=== PATIENT | male | born 1955 | race Caucasian/White ===

== ENCOUNTER → 2020-11-01 09:16 | Outpatient (CLI) | payer MEDICARE, MEDICAID, SELFPAY | PROVIDERS: Family Provider Family Medicine; PCP Family Medicine; Visit Provider Physician Assistant | DX: L08.9 Local infection of the skin and subcutaneous tissue, unspecified (principal) | CPT/HCPCS: 87070; 87077; 87186; 87205 ==

== ENCOUNTER 2020-12-02 04:30 | Emergency (ER) | payer MEDICARE, MEDICAID, SELFPAY ==
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
[2020-12-02 04:40] VITALS: BP 165/94; PULSE 82; RESP 12; O2SAT 99; BMI 36.1
--- NOTE | 2020-12-02 04:44 | DI.RAD.S_ITS ---
PROCEDURE: XR ABDOMEN MIN 2V INDICATIONS: severe abdominal pain TECHNIQUE: 2 views of the abdomen were acquired. COMPARISON: None. FINDINGS: Surgical changes and devices: None. Bowel: No pneumoperitoneum. Nonspecific bowel gas pattern with no evidence of bowel obstruction. Moderate fecal debris. Soft tissues: No masses; visualized solid organ contours appear normal in size. No suspicious abdominal calcifications. Bones: No suspicious bony abnormalities. IMPRESSION: Moderate fecal debris. No bowel obstruction. Dictated by: Carlitos Sutton M.D. on 12/02/2020 at 7:23 Approved by: Carlitos Sutton M.D. on 12/02/2020 at 7:25
[2020-12-02 05:11] VITALS: BP 155/91; PULSE 66; O2SAT 100
[2020-12-02 05:17] LABS: RBC Urine None Seen (0-5/HPF); WBC Urine None Seen (0-5/HPF)
[2020-12-02 05:18] LABS: Bilirubin Urine UA NEGATIVE (NEGATIVE); Color Urine UA YELLOW; Glucose Urine UA NEGATIVE (Negative); Ketones Urine UA 2+ (NEGATIVE); Leukocyte Esterase Urine UA NEGATIVE (NEGATIVE); Nitrite Urine UA NEGATIVE (Negative); Occult Blood Urine UA NEGATIVE (Negative); Protein Urine UA NEGATIVE (Negative); Specific Gravity Urine UA 1.015 (1.000-1.035); Urobilinogen Urine UA 0.2 E.U./dL (0.2)
[2020-12-02 05:19] LABS: Add Manual Diff / Slide Review NO; Basophils Absolute Auto 0 /uL (0-100); Basophils Percent Auto 0.2 % (0-2); Eosinophils Absolute Auto 100 /uL (0-450); Eosinophils Percent Auto 0.7 % (2-4); Hematocrit 37.9 % (41-53); Hemoglobin 12.4 g/dL (13.5-17.5); Lymphocytes Absolute Auto 900 /uL (1100-4500); Lymphocytes Percent Auto 7.4 % (25-40); Mean Corpuscular HGB Conc 32.8 % (30-36); Mean Corpuscular Hemoglobin 28.9 PG (26-34); Mean Corpuscular Volume 88.1 fL (80-100); Monocytes Absolute Auto 400 /uL (0-900); Monocytes Percent Auto 3.6 % (3-14); Neutrophils Absolute Auto 10100 /uL (1500-7000); Neutrophils Percent Auto 88.1 % (50-75); Platelet Count 262 X10^3/uL (150-400); Red Cell Distribution Width 13.9 % (11.6-14.8); White Blood Cell Count 11.5 X10^3/uL (4.5-11.0)
[2020-12-02] MEDS: PANTOPRAZOLE 40 MG VIAL IV (05:23)
[2020-12-02] MEDS: SODIUM CHLORIDE 0.9% 1,000 ML 1000 ML IV (05:23)
[2020-12-02] MEDS: MAG HYDROX/ALUMINUM/SIMETH SUS 20 ML, LIDOCAINE VISCOUS 2% 15 ML PO (05:24)
[2020-12-02 05:26] LABS: Creatine Kinase 199 U/L (55-170); Magnesium 1.9 mg/dL (1.6-2.3)
[2020-12-02 05:27] LABS: Appearance Urine UA Cloudy
[2020-12-02 05:30] VITALS: PULSE 72; RESP 10; O2SAT 99
[2020-12-02 05:36] LABS: Alanine Aminotransferase 27 IU/L (<50); Albumin 4.1 g/dL (3.5-5.0); Albumin Globulin Ratio 1.6 (1.0-2.8); Alkaline Phosphatase 75 U/L (38-126); Aspartate Aminotransferase 35 IU/L (17-59); BUN Creatinine Ratio 14.7 (6-22); Bilirubin Total 0.3 mg/dL (0.2-1.3); Blood Urea Nitrogen 16 mg/dL (9-20); Calcium 9.5 mg/dL (8.4-10.2); Carbon Dioxide 30 mmol/L (22-32); Chloride 102 mmol/L (98-107); Estimated Glomerular Filt Rate > 60.0 mL/min (>60); Globulin 2.6 g/dL (1.7-4.1); Glucose 116 mg/dL (80-110); HEMOLYSIS 30 (0-50); Lipase 62 U/L (23-300); Potassium 4.1 mmol/L (3.4-5.1); Sodium 139 mmol/L (137-145); Total Protein 6.7 g/dL (6.3-8.2)
[2020-12-02 05:38] LABS: Troponin I < 0.012 ng/mL (0.01-0.034)
[2020-12-02 05:41] LABS: CKMB % Relative Index 2.3 % (1.5-5.0)
--- NOTE | 2020-12-02 05:41 | DI.CT.S_ITS ---
PROCEDURE: CT ABDOMEN PELVIS W CON INDICATIONS: severe abdomen pain TECHNIQUE: After the administration of intravenous contrast, axial sections acquired from the lung bases to the pubic symphysis. Coronal and sagittal reformats were performed. For radiation dose reduction, the following was used: automated exposure control, adjustment of mA and/or kV according to patient size. COMPARISON: None. FINDINGS: Image quality: Excellent. Lung bases: Unremarkable. Heart: No significant findings. ABDOMEN: Liver: Unremarkable. Incidental hepatic cyst. Gallbladder: Likely contains stones. No gallbladder wall thickening. Biliary ducts: Unremarkable. Pancreas: Unremarkable. Spleen: Unremarkable. Adrenal Glands: Unremarkable. Kidneys and Ureters: There is a solid enhancing exophytic mass off the lower pole of the right kidney measuring approximately 3.1 x 2.9 x 4.2 cm. There is question indistinctness of the margin with the dura it is fat posteriorly which may potentially represent spread into the adjacent fat. There is no tumor thrombus present in the renal vein. The adjacent adrenal is unremarkable. The right kidney contains multiple nonobstructive calculi. Left kidney and ureter are Stomach and Bowel: Scattered diverticulosis. Stomach, small bowel loops, and colon are otherwise unremarkable. Peritoneum: No abnormal intraperitoneal fluid. No free air. Ventral Wall: No hernias. Abdominal Nodes: No retroperitoneal or mesenteric adenopathy by size criteria. Vessels: Aorta and inferior vena cava are normal in size. Incidental note made of circumaortic left renal vein. PELVIS: Pelvic Organs: Unremarkable. Bladder: Prostate enlarged. No bladder wall thickening. Pelvic Nodes: No enlarged lymph nodes. Miscellaneous: No hernias are seen. Bones: Lumbar degenerative change. IMPRESSION: 1. Renal cell carcinoma, exophytic off the lower pole of the right kidney, measuring 3.1 x 2.9 x 4.2 cm, with possible extension into the surrounding fat. 2. No evidence of metastatic disease. 3. Cholelithiasis. Comment: Final report is concordant with preliminary interpretation provided by [facility]. Dictated by: Carlitos Sutton M.D. on 12/02/2020 at 7:32 Approved by: Carlitos Sutton M.D. on 12/02/2020 at 7:39
[2020-12-02 05:52] LABS: D Dimer 279 ng/mL (<230)
[2020-12-02 06:14] VITALS: PULSE 77; O2SAT 97
[2020-12-02 06:18] LABS: Amorphous Sediment Urine 2+
[2020-12-02 06:19] LABS: Bacteria Urine None Seen; Culture Indicated Urine Cult Not Indicated
[2020-12-02 06:30] VITALS: PULSE 64; RESP 14; O2SAT 99
[2020-12-02] MEDS: ONDANSETRON 4 MG ODT PREPACK 1 BOTTLE MISC (07:43)
== END 2020-12-02 07:54 | disposition home or self-care (01) ==
PROVIDERS: Emergency Provider Emergency Medicine; Family Provider Family Medicine; PCP Family Medicine
DX: R10.84 Generalized abdominal pain (principal); R11.0 Nausea
CPT/HCPCS: 36415; 74019; 74177; 80053; 81001; 82550; 82553; 83690; 83735; 84484; 85025; 85379; 93005; 96361; 96374; 99284; 99285; C9113; Q9967

== ENCOUNTER 2023-11-21 03:35 | Emergency (ER) | payer MEDICARE, MEDICAID, SELFPAY ==
[2023-11-21] VITALS (10 sets, daily range): BP systolic 109–140; BP diastolic 67–80; PULSE 56–80; RESP 11–18; TEMP 36.4–36.5; O2SAT 94–100; BMI 28.7
--- NOTE | 2023-11-21 03:48 | EKG_ITS ---
[facility] [address] [place] [address] Test Date: 2023-11-21 Pat Name: Lele Haywood Jr Department: [facility] Room: Gender: Male Cotton Feeder: ZARA : 1955 Requested By: Order Number: [id number] Reading MD: Nir Conn Measurements Intervals [place] Rate: 71 P: 46 MI: 184 QRS: -16 QRSD: 82 T: 31 QT: 408 QTc: 443 Interpretive Statements Normal sinus rhythm Low voltage QRS Inferior infarct , age undetermined Cannot rule out Anterior infarct , age undetermined Electronically Signed On 11-23-2023 16:33:52 PDT by Nir Conn
--- NOTE | 2023-11-21 03:48 | DI.CT.S_ITS ---
PROCEDURE: CT HEAD/BRAIN WO CON INDICATIONS: johnson, lightheaded, diaphoresis TECHNIQUE: Noncontrast 4.5 mm thick angled axial sections acquired from the foramen magnum to the vertex, with coronal and sagittal reformats. For radiation dose reduction, the following was used: automated exposure control, adjustment of mA and/or kV according to patient size. COMPARISON: None. FINDINGS: Image quality: Diagnostic CSF spaces: Basal cisterns are patent. Lateral ventricles are symmetric. Volume: Vascular calcifications. Periventricular white matter disease is commonly seen with chronic microangiopathy. Volume loss is present. These findings are [id number] Brain: Probably old lacunar infarct in the right basal ganglia region. No acute hemorrhage. No gross loss of russell-white differentiation. Craniofacial structures: No significant paranasal sinus fluid. IMPRESSION: No acute intracranial abnormality. Hypoattenuation focally in the right basal ganglia appears to be an age-indeterminate, probably old lacunar infarct. If there is high concern for parenchymal pathology, consider further evaluation with MRI. Agree with prelim report. Dictated by: Riccardo Barraza M.D. on 11/21/2023 at 9:11 Approved by: Riccardo Barraza M.D. on 11/21/2023 at 9:13
--- NOTE | 2023-11-21 03:48 | DI.RAD.S_ITS ---
PROCEDURE: XR CHEST 1V INDICATIONS: lightheaded, johnson, diaphoresis TECHNIQUE: One view of the chest was acquired. COMPARISON: [facility], , CHEST 1 VIEW, 01/28/2016, 23:39. FINDINGS: Surgical changes and devices: None. Lungs and pleura: Mildly low lung volumes. No dense consolidation or pleural effusion. Mediastinum: Normal heart size Bones and chest wall: Degenerative changes IMPRESSION: Mildly low lung volumes. No acute radiographic abnormality. Agree with prelim report. Dictated by: Riccardo Barraza M.D. on 11/21/2023 at 9:05 Approved by: Riccardo Barraza M.D. on 11/21/2023 at 9:06
--- NOTE | 2023-11-21 03:50 | ED.GENADULT ---
HPI - General Adult General Chief complaint: Dizziness Stated complaint: N/Dizziness Time Seen by Provider: 11/21/23 03:47 History of Present Illness HPI narrative: 68-year-old male with history of bipolar disorder, depression, ADHD, BPH, renal cell carcinoma treated with partial nephrectomy presents with complaint of waking up feeling very lightheaded with a headache and diaphoresis. Patient states he did not have a headache last week but has 1 this evening. He describes it as mild. He states he does not normally get headaches. Denies any fevers chills cold cough or congestion, denies any vision changes. No weakness, loss of sensation, patient states he felt lightheaded like he might pass out. He states no vertigo or spinning. Patient states he was nauseated but did not vomit. Denies any chest pain or pressure, no shortness of breath. No difficulty with speech. Denies any diarrhea or constipation today. He did take stool softener in the last day because of constipation. Did have a bowel movement this evening but describes it as formed. He denies black or bloody stools. Denies any new urinary symptoms. Does take doxazosin to help with your urination but states no issues. No new swelling of extremities. EMS notes patient's glucose was 150 in the field. Patient states he is on several medications for mood disorder including aripiprazole, bupropion, dextroamphetamine. States no new medications or dosages. Did not take any extra additional medication. Has had a prior partial nephrectomy for renal cell carcinoma. Patient states allergic to penicillin. No tobacco, alcohol or recreational drugs. Patient states he feels improved since he was transported. EMS did note that he was quite diaphoretic initially at the scene. Related Data Home Medications Medication Instructions Recorded Confirmed bupropion HCl 300 mg 24 hr tablet, 300 mg PO QAM 02/14/20 07/17/22 extended release dextroamphetamine-amphetamine ER 60 mg PO DAILY 02/14/20 07/17/22 30 mg 24hr capsule,extend release (Adderall XR) Previous Rx's Medication Instructions Recorded aripiprazole 5 mg tablet (Abilify) 5 mg PO QDAY #30 tabs 05/06/18 benzonatate 100 mg capsule 100 mg PO TID PRN cough #21 caps 07/17/22 Allergies Allergy/AdvReac Type Severity Reaction Status Date / Time Penicillins [PENICILLINS] Allergy Mild RASH/FEVER Verified 07/17/22 10:36 PCN Allergy Severe RASH, Uncoded 07/17/22 10:36 SWELLING IN THROAT. Review of Systems Review of Systems ROS Unobtainable: All systems reviewed & are unremarkable except as noted in HPI and below Patient History Medical History (Updated 11/21/23 @ 06:36 by Patricia Rollins DO) Schizoaffective disorder, bipolar type Paresthesia of finger Pure hypercholesterolemia (~2016) Erectile dysfunction (~2016) Chronic fatigue (~2015) Eczema (Unknown) Sleep apnea (Unknown) Depression (~1963) Migraines (Unknown) ADHD (Unknown) Fractures (Unknown) Ankle pain (~2014) Mumps (~1959) Measles (~1959) Chickenpox (~1959) Pure hypercholesterolemia (11/12/16) Erectile dysfunction (11/12/16) Attention deficit hyperactivity disorder (ADHD) (10/11/15) Bipolar disorder Social History marital status: unmarried,single education level: other (professional degree, doctoral degree) Smoking Status: Never smoker alcohol intake: never well-balanced diet: daily or most days daily servings fruits/ve-4 caffeine: Yes (never soda pop, 2+ drinks per day of caffeinated drinks) eating out: 1-3 times/week additional social history: vision deficiences Smoking Status: Never smoker alcohol intake frequency: holidays/special occasions only Substance Use Type: does not use Exam Narrative Exam Narrative: GEN: well nourished, well appearing male, alert and oriented x 3, patient appears to be in mild distress. No diaphoresis. HEENT: Atraumatic, pupils are equal round reactive to light, photophobia, extraocular movements are intact, nares are clear, there is no conjunctival pallor. Throat is clear without any exudates, erythema, tonsillar enlargement or uvular deviation, facial droop, no meningeal signs. HEART: Regular rate and rhythm without murmur, clicks, rubs. Pulses are equal in upper and lower extremities LUNGS:Lungs clear to auscultation, no wheezes, rales, crackles, chest moves symmetrically ABD:bowel sounds normal, soft, non-tender, no guarding, rebound, rigidity, no masses noted, no hepatosplenomegaly :No CVA tenderness MSCL: Non-tender, no muscle atrophy, muscles strength 5/5 upper and lower extremities, full range of motion NEURO:CN 2-12 intact, sensation normal, finger nose finger test normal, heel king test normal, romberg normal SKIN: No rash, erythema or other skin changes. Initial Vital Signs Initial Vital Signs: Vital Signs Temperature 97.6 F 11/21/23 03:46 Pulse Rate 78 11/21/23 03:46 Respiratory Rate 17 11/21/23 03:46 Blood Pressure 140/80 11/21/23 03:46 Pulse Oximetry 100 11/21/23 03:46 Oxygen Delivery Method Room Air 11/21/23 03:46 Course Orders Ordered: Discontinued Medications Sodium Chloride (Normal Saline 0.9%) 1,000 mls @ 1,000 mls/hr IV BOLUS ONE Stop: 11/21/23 04:47 Last Infusion: 11/21/23 05:20 Dose: Infused Documented By: Admin: 11/21/23 04:05 Dose: 1,000 mls/hr Documented By: Vital Signs Vital signs: Vital Signs - 8 hr 11/21/23 03:46 11/21/23 03:46 11/21/23 04:00 Temperature 97.6 F Pulse Rate 78 78 68 Respiratory Rate 17 11 L Blood Pressure 140/80 Pulse Oximetry 100 94 99 Oxygen Delivery Method Room Air 11/21/23 04:04 11/21/23 04:04 11/21/23 04:30 Temperature Pulse Rate 69 63 Respiratory Rate 18 11 L Blood Pressure 120/72 Pulse Oximetry 99 99 Oxygen Delivery Method 11/21/23 04:30 11/21/23 05:00 11/21/23 05:00 Temperature Pulse Rate 62 Respiratory Rate 12 Blood Pressure 121/74 134/70 Pulse Oximetry 98 Oxygen Delivery Method 11/21/23 05:30 11/21/23 06:00 11/21/23 06:09 Temperature Pulse Rate 56 L 80 63 Respiratory Rate 11 L 18 18 Blood Pressure Pulse Oximetry 97 99 98 Oxygen Delivery Method 11/21/23 06:09 Temperature 97.7 F Pulse Rate Respiratory Rate Blood Pressure 118/67 Pulse Oximetry Oxygen Delivery Method Medical Decision Making Lab Data 11/21/23 03:35 11/21/23 03:35 Labs: Lab Results 11/21/23 11/21/23 11/21/23 Range/Units 03:35 04:20 06:10 WBC 5.0 (4.5-11.0) X10^3/uL RBC 4.28 L (4.5-5.9) X10^6/uL Hgb 12.4 L (13.5-17.5) g/dL Hct 37.7 L (41-53) % MCV 88.2 (80-100) fL MCH 29.0 (26-34) PG MCHC 32.9 (30-36) % RDW 14.3 (11.6-14.8) % Plt Count 204 (150-400) X10^3/uL Neut % (Auto) 66.5 (50-75) % Lymph % (Auto) 24.2 L (25-40) % [place] % (Auto) 5.9 (3-14) % Eos % (Auto) 2.9 (2-4) % Baso % (Auto) 0.5 (0-2) % Neut # (Auto) 3300 (2876-5347) /uL Lymph # (Auto) 1200 (0187-8827) /uL [place] # (Auto) 300 (0-900) /uL Eos # (Auto) 100 (0-450) /uL Baso # (Auto) 0 (0-100) /uL Sodium 136 L (137-145) mmol/L Potassium 3.7 (3.4-5.1) mmol/L Chloride 105 (98-107) mmol/L Carbon Dioxide 24 (22-32) mmol/L BUN 23 H (9-20) mg/dL Creatinine 1.63 H (0.66-1.25) mg/dL Estimated GFR 45 L (>60) mL/min BUN/Creatinine Ratio 14.1 (6-22) Glucose 131 H (80-110) mg/dL Calcium 9.1 (8.4-10.2) mg/dL Total Bilirubin 0.7 (0.2-1.3) mg/dL AST 26 (17-59) IU/L ALT 16 (<50) IU/L Alkaline Phosphatase 75 (38-126) U/L Total Creatine Kinase 156 (55-170) U/L Troponin I < 0.012 (0.01-0.034) ng/mL Total Protein 7.0 (6.3-8.2) g/dL Albumin 4.2 (3.5-5.0) g/dL Globulin 2.8 (1.7-4.1) g/dL Albumin/Globulin Ratio 1.5 (1.0-2.8) Lipase 87 (23-300) U/L Urine RBC 0-1/hpf (0-5/HPF) Urine WBC 0-1/hpf (0-5/HPF) Ur Squamous Epith Cells 0-1 /hpf (0-5/HPF) Urine Bacteria Occasional (0-1) (None) Urine Mucus 1+ H (Negative) Ur Culture Indicated? Cult not indicated Vol Urine Centrifuged 10ml (spun) Chlamy pneumoniae PCR Not detected (Not Detect) Adenovirus (PCR) Not detected (Not Detect) B.parapertussis DNA PCR Not detected (Not Detecte) Coronavirus OC43 (PCR) Not detected (Not Detect) Coronavirus HKU1 (PCR) Not detected (Not Detect) Coronavirus 229E (PCR) Not detected (Not Detect) SARS-CoV-2 (PCR) Not detected (Not Detecte) Coronavirus NL63 (PCR) Not detected (Not Detect) Human Metapneumovir PCR Not detected (Not Detect) Influenza Type A (PCR) Not detected (Not Detect) Influenza Type B (PCR) Not detected (Not Detect) M. pneumoniae (PCR) Not detected (Not Detect) Parainfluenza 1 (PCR) Not detected (Not Detect) Parainfluenza 2 (PCR) Not detected (Not Detect) Parainfluenza 3 (PCR) Not detected (Not Detect) Parainfluenza 4 (PCR) Not detected (Not Detect) RSV (PCR) Not detected (Not Detect) Entero/Rhino (PCR) Not detected (Not Detect) Point of Care Testing Glucose POC 116 Urine Dip Bedside Urine Glucose Negative Bedside Urine Bilirubin - Negative Bedside Urine Ketone ++ 40 Urine Specific [place] 1.025 Bedside Urine Occult Blood - Negative Bedside Urine pH 5.5 Bedside Urine Protein - Negative Bedside Urine Urobilinogen - Negative Bedside Urine Nitrite - Negative Bedside Urine Leukocytes - Negative Esterase Point of care testing: Point of Care Testing Glucose POC 116 Urine Dip Bedside Urine Glucose Negative Bedside Urine Bilirubin - Negative Bedside Urine Ketone ++ 40 Urine Specific [place] 1.025 Bedside Urine Occult Blood - Negative Bedside Urine pH 5.5 Bedside Urine Protein - Negative Bedside Urine Urobilinogen - Negative Bedside Urine Nitrite - Negative Bedside Urine Leukocytes - Negative Esterase ECG Data Attestation: I personally reviewed and interpreted this ECG as follows: Interpretation: Sinus rhythm rate of 71 UT 184 QRS 82 QTC 443. No acute ST elevation or depression noted. MDM Narrative Medical decision making narrative: Labs show white count of 5 hemoglobin of 12.4 consistent with priors with a past several years. Platelets are 204. Lymphocytes are low. Labs show creatinine of 1.63 up from 20 21 when he was 1.09 BUN 23 with a sodium 136 potassium 3.7 chloride of 105 and CO2 of 24. Glucose is 131 calcium 9.1 LFTs are negative troponins is less than 0.012 Respiratory panel is negative Head CT shows no acute change Chest x-ray no acute cardiopulmonary abnormality identified. Arteriosclerosis of the aorta. Spondylitic changes of thoracic spine. Urine, point of care showed ketones 1 RBC 1 white cell 1 squamous, occasional bacteria. No clear infection but was sent for culture. Patient received a L of fluids. Describes mild headache but defers anything for it. Patient states he feels chilled but otherwise improved. Patient was able to ambulate to the bathroom without any issue. Reviewed his findings from today did send his urine for culture. Does not have any other clear signs of infection, did not have any cardiac arrhythmias, labs overall reassuring, patient's exam is reassuring and patient's vitals have been appropriate. Patient feels comfortable returning but we discussed if he has much worsening symptoms he is welcome to return at any time. Discharge Plan Departure Patient Disposition: Home Clinical Impression: Lightheadedness Activity Restrictions/Additional Instructions: Follow up for recheck as needed. Exact source of your symptoms today was not found. Your urine was sent for culture but did not show clear infection today. Typically takes 48-72 hours to result but if positive you would be contacted to start antibiotics. Please return for new or worsening symptoms, worsening lightheadedness or any passing out, new chest pain or shortness of breath, rapidly worsening headaches, fevers, persistent vomiting, or other new or concerning changes. Prescriptions: No Action benzonatate 100 mg capsule 100 mg PO TID PRN (Reason: cough) Qty: 21 1RF bupropion HCl 300 mg tablet extended release 24 hr 300 mg PO QAM dextroamphetamine-amphetamine [Adderall XR] 30 mg capsule,extended release 24hr 60 mg PO DAILY aripiprazole [Abilify] 5 mg tablet 5 mg PO QDAY Qty: 30 0RF Referrals: Otto Kohler MD [Family Provider] - Stand Alone Forms: Patient Portal/API
[2023-11-21 03:57] LABS: Add Manual Diff / Slide Review NO; Basophils Absolute Auto 0 /uL (0-100); Basophils Percent Auto 0.5 % (0-2); Eosinophils Absolute Auto 100 /uL (0-450); Eosinophils Percent Auto 2.9 % (2-4); Hematocrit 37.7 % (41-53); Hemoglobin 12.4 g/dL (13.5-17.5); Lymphocytes Absolute Auto 1200 /uL (1100-4500); Lymphocytes Percent Auto 24.2 % (25-40); Mean Corpuscular HGB Conc 32.9 % (30-36); Mean Corpuscular Volume 88.2 fL (80-100); Monocytes Absolute Auto 300 /uL (0-900); Monocytes Percent Auto 5.9 % (3-14); Neutrophils Absolute Auto 3300 /uL (1500-7000); Neutrophils Percent Auto 66.5 % (50-75); Platelet Count 204 X10^3/uL (150-400); Red Blood Cell Count 4.28 X10^6/uL (4.5-5.9); Red Cell Distribution Width 14.3 % (11.6-14.8)
[2023-11-21 04:03] LABS: Alanine Aminotransferase 16 IU/L (<50); Albumin 4.2 g/dL (3.5-5.0); Albumin Globulin Ratio 1.5 (1.0-2.8); Alkaline Phosphatase 75 U/L (38-126); Aspartate Aminotransferase 26 IU/L (17-59); BUN Creatinine Ratio 14.1 (6-22); Bilirubin Total 0.7 mg/dL (0.2-1.3); Blood Urea Nitrogen 23 mg/dL (9-20); Calcium 9.1 mg/dL (8.4-10.2); Carbon Dioxide 24 mmol/L (22-32); Chloride 105 mmol/L (98-107); Creatine Kinase 156 U/L (55-170); Estimated Glomerular Filt Rate 45 mL/min (>60); Globulin 2.8 g/dL (1.7-4.1); Glucose 131 mg/dL (80-110); HEMOLYSIS 26 (0-50); Lipase 87 U/L (23-300); Potassium 3.7 mmol/L (3.4-5.1); Sodium 136 mmol/L (137-145)
[2023-11-21] MEDS: SODIUM CHLORIDE 0.9% 1,000 ML 1000 ML IV (04:05)
[2023-11-21 04:15] LABS: Troponin I < 0.012 ng/mL (0.01-0.034)
[2023-11-21 05:19] LABS: Adenovirus Not Detected (Not Detect); B. parapertussis Not Detected (Not Detecte); Bordetella pertussis Not Detected (Not Detect); Chlamydophila pneumoniae Not Detected (Not Detect); Coronavirus 229E Not Detected (Not Detect); Coronavirus HKU1 Not Detected (Not Detect); Coronavirus NL 63 Not Detected (Not Detect); Coronavirus OC43 Not Detected (Not Detect); Human Metapneumovirus Not Detected (Not Detect); Human Rhinovirus/Enterovirus Not Detected (Not Detect); Influenza A Not Detected (Not Detect); Influenza B Not Detected (Not Detect); Mycoplasma pneumoniae Not Detected (Not Detect); Parainfluenza Virus 1 Not Detected (Not Detect); Parainfluenza Virus 2 Not Detected (Not Detect); Parainfluenza Virus 3 Not Detected (Not Detect); Parainfluenza Virus 4 Not Detected (Not Detect); Respiratory Syncytial Virus Not Detected (Not Detect); SARS- CoV-2 Not Detected (Not Detecte)
[2023-11-21 06:24] LABS: Bacteria Urine Occasional (0-1); Culture Indicated Urine Cult Not Indicated; Mucus Urine 1+ (Negative); RBC Urine 0-1/HPF (0-5/HPF); Squamous Epithelial Cell Urine 0-1 /HPF (0-5/HPF); Urine Volume 10mL (spun); WBC Urine 0-1/HPF (0-5/HPF)
== END 2023-11-21 07:17 | disposition home or self-care (01) ==
PROVIDERS: Emergency Provider Emergency Medicine; Family Provider Family Medicine; PCP Family Medicine
DX: R51.9 Headache, unspecified (principal); R42 Dizziness and giddiness; R61 Generalized hyperhidrosis
CPT/HCPCS: 70450; 71045; 80053; 81003; 81015; 82550; 82962; 83690; 84484; 85025; 87086; 87633; 93005; 99283; 99284

== ENCOUNTER → 2024-05-04 07:43 | Outpatient (CLI) | payer MEDICARE, MEDICAID, SELFPAY ==
--- NOTE | 2024-05-04 07:44 | DI.US.S_ITS ---
PROCEDURE: US ABD AORTA ANEURYSM SCREEN INDICATIONS: Tobacco use TECHNIQUE: Real time scanning was performed of the aorta and iliac arteries, with image documentation. COMPARISON: CT, CHEST/ABD/PEL WITH CONTRAST, 01/28/2016, 23:39. FINDINGS: Aorta: Proximal aortic diameter measures 2.6 cm. Mid-aorta measures 1.5 cm. Distal aortic diameter is 1.8 cm. Iliac arteries: Right common iliac artery measures 1.4 cm. Left common iliac artery measures 1.2 cm. IMPRESSION: No aneurysmal dilation. Minimal ectasia of the proximal aorta. Dictated by: Tatyana Parks M.D. on 05/04/2024 at 14:01 Approved by: Tatyana Parks M.D. on 05/04/2024 at 14:02
[2024-05-04 08:56] LABS: Cholesterol 268 mg/dL (140-199); HDL Cholesterol 61 mg/dL (40-60); LDL Cholesterol Calculated 186 mg/dL (<100); Triglycerides 106 mg/dL (35-150)
== END ==
PROVIDERS: Family Provider Family Medicine; PCP Family Medicine; Referring Provider Family Medicine; Visit Provider Family Medicine
DX: E78.00 Pure hypercholesterolemia, unspecified (principal); Z72.0 Tobacco use; Z13.6 Encounter for screening for cardiovascular disorders
CPT/HCPCS: 36415; 76706; 80061

== ENCOUNTER → 2024-12-13 14:24 | Outpatient (CLI) | payer MEDICARE, MEDICAID, SELFPAY ==
[2024-12-13 15:08] LABS: Add Manual Diff / Slide Review NO; Hematocrit 39.3 % (41-53); Hemoglobin 13.0 g/dL (13.5-17.5); Lymphocytes Absolute Auto 1000 /uL (1100-4500); Mean Corpuscular HGB Conc 33.1 % (30-36); Mean Corpuscular Hemoglobin 29.2 PG (26-34); Mean Corpuscular Volume 88.1 fL (80-100); Platelet Count 220 X10^3/uL (150-400)
[2024-12-13 15:18] LABS: Hemoglobin A1C% w Est Avg Glu 5.4 % (4.0-6.0)
[2024-12-13 15:26] LABS: Alanine Aminotransferase 16 IU/L (<50); Albumin 4.3 g/dL (3.5-5.0); Albumin Globulin Ratio 1.7 (1.0-2.8); Alkaline Phosphatase 78 U/L (38-126); Blood Urea Nitrogen 22 mg/dL (9-20); Calcium 9.5 mg/dL (8.4-10.2); Carbon Dioxide 24 mmol/L (22-32); Chloride 103 mmol/L (98-107); Cholesterol 228 mg/dL (140-199); Estimated Glomerular Filt Rate > 60 mL/min (>60); Globulin 2.6 g/dL (1.7-4.1); Glucose 103 mg/dL (70-99); HDL Cholesterol 49 mg/dL (40-60); HEMOLYSIS < 15 (0-50); Potassium 4.6 mmol/L (3.4-5.1); Sodium 136 mmol/L (137-145); Total Protein 6.9 g/dL (6.3-8.2); Triglycerides 62 mg/dL (35-150)
== END ==
PROVIDERS: PCP Family Medicine; Referring Provider Family Medicine; Visit Provider Family Medicine
DX: N18.30 Chronic kidney disease, stage 3 unspecified (principal); R73.03 Prediabetes; R03.0 Elevated blood-pressure reading, without diagnosis of hypertension; E78.5 Hyperlipidemia, unspecified
CPT/HCPCS: 36415; 80053; 80061; 83036; 85025

== ENCOUNTER → 2025-02-16 16:09 | Outpatient (CLI) | payer MEDICARE, MEDICAID, SELFPAY ==
--- NOTE | 2025-02-16 16:11 | DI.MRI.S_ITS ---
PROCEDURE: MR HEAD/BRAIN WO CON INDICATIONS: Eval and treat TECHNIQUE: Non-contrast axial T1 spin echo, axial T2 fast spin echo, sagittal and axial FLAIR, coronal T2 fast spin echo, axial gradient echo, axial diffusion and ADC through the brain. COMPARISON: [facility], CT, CT HEAD/BRAIN WO CON, 11/21/2023, 5:08. FINDINGS: Image quality: Excellent. CSF spaces: Ventricles appear symmetric in size and shape. Basal cisterns are patent. No extra-axial fluid collections. Brain: No intracranial bleeds or mass effects. There is cerebral volume loss for age. There are periventricular and deep white matter chronic small vessel ischemic changes. Brainstem appears normal. Diffusion-weighted images show no acute infarct. T2 hyperintensity within the right temporal lobe possibly related to perineural cysts versus focus of prior infection/infarction. It is unchanged. Normal intravascular flow voids are present. Skull and face: Calvarial bone marrow is normal in signal. Orbits are normal. Sinuses: Sinuses and mastoids are clear. IMPRESSION: 1. No acute intracranial process. 2. [id number] atrophy and chronic microvascular ischemic changes. Dictated by: Tatyana Parks M.D. on 02/17/2025 at 11:30 Approved by: Tatyana Parks M.D. on 02/17/2025 at 11:33
== END ==
PROVIDERS: PCP Family Medicine; Referring Provider Family Medicine; Visit Provider Family Medicine
DX: R25.1 Tremor, unspecified (principal)
CPT/HCPCS: 70551

== ENCOUNTER → 2025-03-07 13:57 | Outpatient (CLI) | payer MEDICARE, MEDICAID, SELFPAY ==
[2025-03-07 14:44] LABS: Appearance Urine UA CLEAR; Bilirubin Urine UA NEGATIVE (NEGATIVE); Color Urine UA YELLOW; Glucose Urine UA NEGATIVE (Negative); Ketones Urine UA TRACE (NEGATIVE); Leukocyte Esterase Urine UA NEGATIVE (NEGATIVE); Nitrite Urine UA NEGATIVE (Negative); Occult Blood Urine UA TRACE-INTACT (Negative); Protein Urine UA NEGATIVE (Negative); Specific Gravity Urine UA 1.020 (1.000-1.035); Urobilinogen Urine UA 0.2 E.U./dL (0.2); pH Urine UA 5.5 (4.5-8.0)
[2025-03-07 14:59] LABS: Culture Indicated Urine Cult Not Indicated
[2025-03-07 15:03] LABS: Protein (Total) Urine Random 11 mg/dL (0-12); Protein Creatinine Ratio Urine 0.10 GRAM/24H
[2025-03-07 15:04] LABS: Albumin 3.9 g/dL (3.5-5.0); Blood Urea Nitrogen 13 mg/dL (9-20); Calcium 9.5 mg/dL (8.4-10.2); Carbon Dioxide 27 mmol/L (22-32); Chloride 105 mmol/L (98-107); Estimated Glomerular Filt Rate > 60 mL/min (>60); Glucose 104 mg/dL (70-99); HEMOLYSIS < 15 (0-50); Phosphorous 2.7 mg/dL (2.3-3.7); Potassium 4.6 mmol/L (3.4-5.1); Sodium 139 mmol/L (137-145)
[2025-03-07 15:10] LABS: Microalbumi Creatinin Ratio Ur 24.0 ug/mg CR (<30)
== END ==
PROVIDERS: PCP Family Medicine; Visit Provider Internal Medicine Nephrology
DX: N18.2 Chronic kidney disease, stage 2 (mild) (principal)
CPT/HCPCS: 36415; 80069; 81001; 82043; 82570; 84156

== ENCOUNTER → 2025-04-01 11:38 | Outpatient (CLI) | payer MEDICARE, OTHER, MEDICAID, SELFPAY ==
--- NOTE | 2025-04-01 11:39 | DI.CT.S_ITS ---
PROCEDURE: CT ABDOMEN RENAL PROTOCOL INDICATIONS: Papillary renal cell carcinoma TECHNIQUE: Optional 5 mm thick noncontrast images acquired from the diaphragm to the iliac crests. After the administration of intravenous contrast, 5 mm thick images again acquired from the diaphragm to the iliac crests in the arterial and urographic phases. 5 mm thick coronal and sagittal reformats were then acquired. For radiation dose reduction, the following was used: automated exposure control, adjustment of mA and/or kV according to patient size. COMPARISON: [facility], CT, CHEST/ABD/PEL WITH CONTRAST, 01/28/2016, 23:39. FINDINGS: Image quality: Diagnostic. Kidneys and Ureters: Posttreatment changes on the inferior pole of the right kidney, with partial nephrectomy. Along the posterior aspect of the nephrectomy bed, there soft tissue measuring approximately 1.6 x 1.0 cm (series 5, image 65). Separate of this soft tissue, along the medial aspect of the inferior pole there is a 1.1 cm region of enhancement which demonstrates washout (series 3, image 57 and series 5, image 58). This is at the resection bed. OTHER: Lower chest: Unremarkable. Liver: Suspected flash filling hemangioma in segment 2, with associated vascular shunt. This region measures 1.7 cm (series 3, image 22). Gallbladder: Contracted. Biliary ducts: No biliary dilation. Pancreas: No ductal dilation. Spleen: Size is within normal limits. Adrenal Glands: No adrenal nodules. Stomach and Bowel: Normal colonic caliber, without significant wall thickening. Colonic diverticulosis without evidence of diverticulitis. Peritoneum: No abnormal intraperitoneal fluid. No free air. Ventral Wall: No hernia. Abdominal Nodes: No retroperitoneal or mesenteric adenopathy by size criteria. Vessels: Aorta and inferior vena cava are normal in size. Bones: No aggressive osseous abnormality. IMPRESSION: Partial right nephrectomy. Along the posterior aspect of the surgical bed, there is a soft tissue nodularity which probably represents mild enhancing scar tissue. Additionally, there is a region along the medial peripheral margin of the surgical bed which demonstrates enhancement with washout, raising the concern for a 2nd primary versus local recurrence. Suspected hemangioma with vascular shunt in segment 2 of the liver. This could be confirmed with MRI in the setting of malignancy (hepatic mass protocol). This MRI could also provide more details on the inferior pole of the right kidney. Dictated by: Ravinder Jeronimo M.D. on 04/03/2025 at 15:05 Approved by: Ravinder Jeronimo M.D. on 04/03/2025 at 15:12
== END ==
PROVIDERS: PCP Family Medicine; Referring Provider Nurse Practitioner Adult Health; Visit Provider Nurse Practitioner Adult Health
DX: C64.1 Malignant neoplasm of right kidney, except renal pelvis (principal); K57.90 Diverticulosis of intestine, part unspecified, without perforation or abscess without bleeding
CPT/HCPCS: 74170; Q9967